=== PATIENT | male | born 1980 | race Caucasian/White ===

== ENCOUNTER 2016-05-28 19:21 | Emergency (ER) | payer OTHER ==
[~2016-05-28] VITALS: Ht 175.3 cm; Wt 134.4 kg
[2016-05-28 19:26] VITALS: TEMP 37.2; Ht 175.3 cm; Wt 134.4 kg
[2016-05-28] MEDS ORDERED: SERT50TA PO (19:51)
[2016-05-28] MEDS ORDERED: ATOR10TA88 PO (19:51)
[2016-05-28] MEDS ORDERED: FLUT0.15 NAE (19:51)
[2016-05-28] MEDS ORDERED: PRLSR20 PO (19:51)
[2016-05-28] MEDS ORDERED: GABA-112 PO (19:51)
[2016-05-28] MEDS ORDERED: METF500T5 PO (19:51)
[2016-05-28] MEDS ORDERED: CLR10 PO (19:51)
[2016-05-28] MEDS ORDERED: SODIUM CHLORIDE 0.9% 1000ML 1,000 ML IV STA (19:59)
[2016-05-28] MEDS ORDERED: ALBUT/IPRATROP 3MG/0.5MG NEB 3 ML VIAL INH STA (19:59)
[2016-05-28 20:45] LABS: BASO % 0.3 %; BASO ABS # 0.03 K/uL (0-0.2); COMPLETE YES; EOS % 0.8 %; HEMATOCRIT 45.1 % (42-52); IG% 0.3 %; LYMPH % 16.1 %; MEAN CELL VOLUME 87.7 fL (80-100); MEAN CORPUSCULAR HEMOGLOBIN 32.1 pg (25-34); MEAN CORPUSCULAR HGB CONC 36.6 g/dl (32-36); MEAN PLATELET VOLUME 11.6 fL (7.4-10.4); NEUT % 71.5 %; PLATELET COUNT 182 K/uL (130-400); RED BLOOD COUNT 5.14 M/uL (4.7-6.1); WHITE BLOOD COUNT 9.31 K/uL (4.8-10.8)
[2016-05-28 21:04] LABS: ALT/SGPT 72 U/L (12-78); BLOOD UREA NITROGEN 15 mg/dl (7-18); BUN/CREATININE RATIO 14.6 (10-20); CALCIUM 8.8 mg/dl (8.5-10.1); CARBON DIOXIDE 24 mmol/L (21-32); CHLORIDE 104 mmol/L (98-107); GLUCOSE 186 mg/dl (70-99); POTASSIUM 3.6 mmol/L (3.5-5.1); SODIUM 140 mmol/L (136-145)
--- NOTE | 2016-05-28 21:06 | DIAGNOSTIC IMAGING REPORT ---
CHEST 2 VIEWS ROUTINE HISTORY: EVALUATE RESPIRATORY DISTRESS.DYSPNEA COMPARISON: Chest 10/30/2015. FINDINGS: The lungs are clear. Cardiac silhouette is normal in size. No pleural effusions. No pneumothorax. IMPRESSION: No acute process. Electronically signed by: Rkaan García M.D. 05/28/2016 9:04 PM Dictated Date/Time: 05/28/2016 9:02 PM
[2016-05-28 21:09] LABS: ALKALINE PHOSPHATASE 129 U/L (45-117); AST/SGOT 34 U/L (15-37)
[2016-05-28] MEDS ORDERED: VNTHFA/IN INH (21:11)
--- NOTE | 2016-05-28 21:25 | EMERGENCY ROOM VISIT NOTE ---
ED Visit Note First contact with patient: 19:51 Chief Complaint: Flulike symptoms. History of Present Illness: Mr. Navas is a 36-year-old white male who ambulates into the ED with multiple symptoms. Patient reports his symptoms started approximately 2 weeks ago and has gradually increased in intensity. These have been sinus congestion, nasal drainage, cough, sneezing, episodes of feeling very hot and then having an episode of diaphoresis, bilateral lateral chest pain more pronounced on the left than the right, wheezing and dyspnea on exertion. Patient reports he had seen his PCP for these symptoms and was placed on Claritin which minimally improved his symptoms and Flonase. He describes his chest discomfort as a sharp sensation. He places it over the bilateral lateral and anterior chest. He rates his discomfort 3/10. The pain is nonradiating. The pain worsens with coughing and sneezing. He has not identified any alleviating factors related to these pains. He has not taken any medications for pain prior to arrival at the hospital. For his other symptoms he reports he has been using DayQuil and NyQuil without relief but does report they have caused him to sleep all day. Additionally he reports he has been having increasing urinary frequency but not her and or other urinary tract symptoms symptoms. He denies lamont fevers, headache, dizziness, sinus congestion, hearing changes, ear pain, bloody drainage from his nose, sore throat, difficulty speaking, difficulty swallowing, neck and back pain, midsternal chest pain, palpitations, orthopnea, dependent edema, previous clots, claudication, cramping, recent surgery/inactivity/extended travel, hemoptysis, abdominal pain, nausea/vomiting , posttussive vomiting, decreased appetite, flank pain, urinary burning, hematuria. Review of Systems: As noted above in history of present illness. All body systems were reviewed and found to be negative as noted above. Past Medical History: Diabetes, dyslipidemia, pneumonia, bronchitis, rhabdomyolysis, noncardiogenic pulmonary edema, learning disability. Current Medications: Medications Dose Route/Sig Max Daily Dose Days Date Category Lipitor (Atorvastatin Calcium) 10 Mg Tab 10 Mg PO DAILY 05/28/16 Reported Neurontin (Gabapentin) 100 Mg Cap 100 Mg PO TID 05/28/16 Reported Zoloft (Sertraline HCl) 50 Mg Tab 50 Mg PO DAILY 05/28/16 Reported Glucophage Er (Metformin HCl) 500 Mg Tab 1,000 Mg PO BID 05/28/16 Reported Prilosec (Omeprazole) 20 Mg Capcr 20 Mg PO DAILY 05/28/16 Reported Flonase Allergy Relief (Fluticasone Propionate (Nasal)) 50 Mcg/Act Spr 2 Sprays REYNALDO DAILY 05/28/16 Reported Claritin (Loratadine) 10 Mg Tab 10 Mg PO DAILY 05/28/16 Reported Allergies to Medications: Patient denies. Social History: Patient is not employed, he is on disability; he feels safe in his home environment; he admits to tobacco and alcohol use. Physical Examination: Vital Signs: Date Time Temp Pulse Resp B/P Pulse Ox O2 Delivery O2 Flow Rate FiO2 05/28/16 20:39 112 18 139/96 96 Room Air 05/28/16 19:26 37.2 118 18 162/93 98 Room Air GENERAL: 36-year-old male in mild distress due to pain, nontoxic-appearing, afebrile and hemodynamically stable. NEUROLOGICAL: Awake, alert and oriented to person, place and time. Answering questions appropriately and following commands. Normal gait. Good hand eye coordination. No focal motor sensory deficits. SKIN: Hot, wet and pink. No soft tissue eruptions or trauma noted. HEENT: Atraumatic and normocephalic. PERRLA. Sclera white and conjunctiva pink. No drainage from naris, but audible congestion. Oral cavity moist and pink. No erythema or tenderness over the frontal or maxillary sinuses. External ears are nontender. Auditory canals are pink and patent. Bilateral cerumen impaction. Pharynx is nonerythematous or edematous. Speech normal. No lymphadenopathy. No carotid bruits. Trachea midline. No jugular venous distention. BACK: No tenderness over the bony spine. No CVA tenderness. THORAX: Lungs sounds are clear to auscultation but decreased bilaterally with equal equal bilaterally with symmetrical chest wall. No wheezing, rales or rhonchi. Moderate tenderness over the lower anterior lateral chest guzmán without bony deformity, bony crepitus or subcutaneous air. No increased respiratory effort or rate. HEART: Tachycardic rate and rhythm. No gallops, rubs or murmurs are appreciated. PMI is not displaced. No lifts, he is or thrills. ABDOMEN: Obese, soft and nontender. Positive bowel sounds in all quadrants. No guarding, rigidity or organomegaly. EXTREMITIES: Moves all extremities well on command and with purpose. All distal neurovascular statuses are intact and equal bilaterally. No calf tenderness or cords. ED Course: Patient is assessed as noted above. Laboratory Testing: Test 05/28/16 20:30 05/28/16 20:33 Range/Units White Blood Count 9.31 4.8-10.8 K/uL Red Blood Count 5.14 4.7-6.1 M/uL Hemoglobin 16.5 14.0-18.0 g/dL Hematocrit 45.1 42-52 % Mean Corpuscular Volume 87.7 80-100 fL Mean Corpuscular Hemoglobin 32.1 25-34 pg Mean Corpuscular Hemoglobin Concent 36.6 32-36 g/dl Platelet Count 182 130-400 K/uL Mean Platelet Volume 11.6 7.4-10.4 fL Neutrophils (%) (Auto) 71.5 % Lymphocytes (%) (Auto) 16.1 % Monocytes (%) (Auto) 11.0 % Eosinophils (%) (Auto) 0.8 % Basophils (%) (Auto) 0.3 % Neutrophils # (Auto) 6.66 1.4-6.5 K/uL Lymphocytes # (Auto) 1.50 1.2-3.4 K/uL Monocytes # (Auto) 1.02 0.11-0.59 K/uL Eosinophils # (Auto) 0.07 0-0.5 K/uL Basophils # (Auto) 0.03 0-0.2 K/uL RDW Standard Deviation 40.3 36.4-46.3 fL RDW Coefficient of Variation 12.6 11.5-14.5 % Immature Granulocyte % (Auto) 0.3 % Immature Granulocyte # (Auto) 0.03 0.00-0.02 K/uL Sodium Level 140 136-145 mmol/L Potassium Level 3.6 3.5-5.1 mmol/L Chloride Level 104 98-107 mmol/L Carbon Dioxide Level 24 21-32 mmol/L Anion Gap 12.0 3-11 mmol/L Blood Urea Nitrogen 15 7-18 mg/dl Creatinine 1.00 0.60-1.40 mg/dl Est Creatinine Clear Calc Drug Dose 141.6 ml/min Estimated GFR () 113.3 Estimated GFR (Non- 97.8 BUN/Creatinine Ratio 14.6 10-20 Random Glucose 186 70-99 mg/dl Calcium Level 8.8 8.5-10.1 mg/dl Total Bilirubin 0.4 0.2-1 mg/dl Aspartate Amino Transf (AST/SGOT) 34 15-37 U/L Alanine Aminotransferase (ALT/SGPT) 72 12-78 U/L Alkaline Phosphatase 129 45-117 U/L Total Creatine Kinase 217 39-308 U/L Creatine Kinase MB < 0.5 0.5-3.6 ng/ml Creatine Kinase MB Ratio 0-3.0 Troponin I < 0.015 0-0.045 ng/ml Total Protein 7.3 6.4-8.2 gm/dl Albumin 3.6 3.4-5.0 gm/dl Globulin 3.7 2.5-4.0 gm/dl Albumin/Globulin Ratio 1.0 0.9-2 Bedside Glucose 197 70-99 mg/dl EKG: Was read by myself and reviewed with Dr. Ivory; shows sinus tachycardia with a ventricular rate of 112 bpm. Nonspecific T wave abnormalities but no significant ST changes indicating ischemia, injury or infarction. This was compared to a previous from March 2009 and T wave inversion in V5 and V6 were reversed and are now positive. Chest X-Rays: Were read by myself and the radiologist showing no acute infiltrates, effusions or pneumothorax. Stable heart silhouette and no bony abnormalities. This was compared to previous and no acute changes were noted. Patient was hydrated with normal saline and received an albuterol/Atrovent nebulizer breathing treatment. Patient was reassessed multiple times during his stay in the emergency department. After his breathing treatment his lungs are reassessed and showed improved air movement in all kim and he continued to have no wheezing, rales or rhonchi. Patient's case was reviewed with Dr. Ivory; we agreed on diagnostic approach, treatment, disposition and plan. Patient was educated about tonight's findings and instructed on his treatment plan; he verbalizes understanding and agreement with this plan. Clinical Impression: Upper respiratory tract infection. Hyperglycemia. Tinea rash in the axillary area. Decision-Making: Initially my differential diagnosis I considered bronchitis, pneumonia, pulmonary edema, acute coronary syndrome, pleurisy and other causes. Disposition: Patient discharged home in stable condition; prior to departure he was reassessed and subjectively reported he was feeling better. Plan: Continue your current medications as prescribed right primary care provider. Use ibuprofen or acetaminophen as needed for pain. Stop tobacco use until resolution of symptoms. Use 2 puffs of albuterol inhaler with spacer every 6 hours for 5 days and as needed for severe coughing episode, wheezing or sensations of shortness of breath. Cover your rash with an [id number] fungal cream 2 times a day. Recheck your blood sugar before and after every meal for the next 5 days and at bedtime and waking up. Document these on a piece of paper's to review those with your primary care provider. Follow-up with your family physician for recheck in 2-4 days and also reevaluation of your blood sugar. Return to the ED for worsening coughing, coughing up blood, worsening wheezing/ shortness of breath, fevers, worsening blood sugar or any new/concerning symptoms.
[2016-05-28 21:43] VITALS: BP 148/93; PULSE 110; O2SAT 96
== END 2016-05-28 21:44 | disposition home or self-care (01) ==
LOC: C.EDB 19:22 → C.EDD 21:44
DX: J06.9 Acute upper respiratory infection, unspecified (principal); E11.65 Type 2 diabetes mellitus with hyperglycemia; B35.9 Dermatophytosis, unspecified; E78.5 Hyperlipidemia, unspecified; F17.200 Nicotine dependence, unspecified, uncomplicated

== ENCOUNTER 2017-01-12 23:12 | Emergency (ER) | payer OTHER ==
[~2017-01-12] VITALS: Ht 182.9 cm; Wt 119.0 kg
[~2017-01-12 23:12] MED LIST: ATOR10TA88 PO; CLR10 PO; FLUT0.15 NAE; GABA-112 PO; METF500T5 PO; PRLSR20 PO; SERT50TA PO
[2017-01-12 23:21] VITALS: TEMP 36.8; Ht 182.9 cm; Wt 119.0 kg
[2017-01-12] MEDS ORDERED: KETOROLAC TROMETHAMINE 30 MG/ML VIAL IV STA (23:34)
[2017-01-12] MEDS ORDERED: SODIUM CHLORIDE 0.9% 1000ML 1,000 ML IV STA (23:34)
[2017-01-13 00:02] VITALS: O2SAT 96
[2017-01-13 00:52] LABS: ALKALINE PHOSPHATASE 171 U/L (45-117); ALT/SGPT 46 U/L (12-78); AST/SGOT 19 U/L (15-37); BLOOD UREA NITROGEN 7 mg/dl (7-18); BUN/CREATININE RATIO 7.2 (10-20); CALCIUM 8.7 mg/dl (8.5-10.1); CARBON DIOXIDE 27 mmol/L (21-32); CHLORIDE 100 mmol/L (98-107); CREATININE 0.94 mg/dl (0.60-1.40); GLUCOSE 313 mg/dl (70-99); POTASSIUM 3.1 mmol/L (3.5-5.1); SODIUM 135 mmol/L (136-145)
[2017-01-13 01:22] LABS: BETA-HYDROXYBUTYRATE 1.17 mg/dL (0.2-2.81)
[2017-01-13 01:32] LABS: BASO % 0.3 %; BASO ABS # 0.03 K/uL (0-0.2); COMPLETE YES; EOS % 1.1 %; HEMATOCRIT 46.2 % (42-52); IG% 0.6 %; LYMPH % 32.9 %; LYMPH ABS # 3.26 K/uL (1.2-3.4); MEAN CELL VOLUME 85.7 fL (80-100); MEAN CORPUSCULAR HEMOGLOBIN 30.9 pg (25-34); MEAN CORPUSCULAR HGB CONC 36.3 g/dl (32-36); MEAN PLATELET VOLUME 11.8 fL (7.4-10.4); MONO % 6.6 %; NEUT % 58.5 %; PLATELET COUNT 154 K/uL (130-400); RED BLOOD COUNT 5.39 M/uL (4.7-6.1); WHITE BLOOD COUNT 9.91 K/uL (4.8-10.8)
[2017-01-13] MEDS ORDERED: POTASSIUM CHLORIDE 10 MEQ TABCR PO STA (01:40)
[2017-01-13 01:54] VITALS: BP 141/99; PULSE 89; O2SAT 97
--- NOTE | 2017-01-13 06:39 | EMERGENCY ROOM VISIT NOTE ---
History First contact with patient: 23:26 Chief Complaint: LEG PAIN,LEG INJURY Stated Complaint: CURTIS HOARSE IN B/L CALVES, RESTLESS, BACK PAIN History of Present Illness The patient is a 36 year old male who presents to the Emergency Room with complaints of leg cramping for the past year that is slightly worse today. Patient does not regularly check his blood sugars. Patient denies chest pain, dyspnea, fever, chills, nausea, vomiting, diarrhea, abdominal pain. He is tolerate by mouth fluids and food. Review of Systems See HPI for pertinent positives & negatives. A total of 10 systems reviewed and were otherwise negative. Past Medical/Surgical History Medical Problems: (1) History of COPD (2) No Known Active Medical Problems Family History Cancer Diabetes mellitus Seizures Social History Smoking Status: Current Every Day Smoker Drug Use: none Marital Status: Occupation Status: employed Current/Historical Medications Scheduled Atorvastatin (Lipitor), 10 MG PO DAILY Gabapentin (Neurontin), 100 MG PO TID Loratadine (Claritin), 10 MG PO DAILY Metformin Hcl Er (Glucophage Er), 1,000 MG PO BID Omeprazole (Prilosec), 20 MG PO DAILY Sertraline (Zoloft), 50 MG PO DAILY Physical Exam Vital Signs Date Time Temp Pulse Resp B/P (MAP) Pulse Ox O2 Delivery O2 Flow Rate FiO2 01/13/17 01:54 89 20 141/99 97 01/13/17 00:43 97 20 157/112 96 Room Air 01/13/17 00:02 96 Room Air 01/12/17 23:21 36.8 117 18 142/96 96 Room Air Pain Rating (0-10): 0 Physical Exam VITALS: Vitals are noted on the nurse's note and reviewed by myself. Vital signs stable. GENERAL: White male, in no acute distress, nondiaphoretic, well-developed well- nourished. SKIN: The skin was without rashes, erythema, edema, or bruising. There is no tenting of the skin. Capillary reflex less than 2 seconds. HEAD: Normocephalic atraumatic. EARS: External auditory canals clear, tympanic membranes pearly pappas without erythema or effusion bilaterally. EYES: Pupils equal round and reactive to light and accommodation. Conjunctivae without injection, sclerae without icterus. Extraocular movements intact. NOSE: Patent, turbinates without inflammation or discharge. MOUTH: Mucous membranes moist. Pharynx without erythema or exudate. Uvula midline. Airway patent. Tongue does not deviate. NECK: Supple without nuchal rigidity. No lymphadenopathy. No thyromegaly. Cervical spine is nontender. No JVD. HEART: Regular rate and rhythm LUNGS: Clear to auscultation bilaterally without wheezes, rales or rhonchi. No dullness to percussion. No retractions or accessory muscle use. ABDOMEN: Positive bowel sounds x 4. Normal tympanic percussion. Soft, nontender, without masses or organomegaly. Lynn sign negative. No guarding or rebound tenderness. MUSCULOSKELETAL: No muscle atrophy, erythema, or edema noted. NEURO: Patient was alert and oriented to person place and time. Normal sensation to light and sharp touch. No focal neurological deficits. Medical Decision & Procedures Laboratory Results 01/12/17 23:56 Red Blood Count 5.39, Mean Corpuscular Volume 85.7, Mean Corpuscular Hemoglobin 30.9, Mean Corpuscular Hemoglobin Concent 36.3, Mean Platelet Volume 11.8, Neutrophils (%) (Auto) 58.5, Lymphocytes (%) (Auto) 32.9, Monocytes (%) (Auto) 6.6, Eosinophils (%) (Auto) 1.1, Basophils (%) (Auto) 0.3, Neutrophils # (Auto) 5.80, Lymphocytes # (Auto) 3.26, Monocytes # (Auto) 0.65, Eosinophils # (Auto) 0.11, Basophils # (Auto) 0.03 01/12/17 23:56 Test 01/12/17 23:56 White Blood Count 9.91 K/uL (4.8-10.8) Red Blood Count 5.39 M/uL (4.7-6.1) Hemoglobin 16.7 g/dL (14.0-18.0) Hematocrit 46.2 % (42-52) Mean Corpuscular Volume 85.7 fL (80-100) Mean Corpuscular Hemoglobin 30.9 pg (25-34) Mean Corpuscular Hemoglobin Concent 36.3 g/dl (32-36) Platelet Count 154 K/uL (130-400) Mean Platelet Volume 11.8 fL (7.4-10.4) Neutrophils (%) (Auto) 58.5 % Lymphocytes (%) (Auto) 32.9 % Monocytes (%) (Auto) 6.6 % Eosinophils (%) (Auto) 1.1 % Basophils (%) (Auto) 0.3 % Neutrophils # (Auto) 5.80 K/uL (1.4-6.5) Lymphocytes # (Auto) 3.26 K/uL (1.2-3.4) Monocytes # (Auto) 0.65 K/uL (0.11-0.59) Eosinophils # (Auto) 0.11 K/uL (0-0.5) Basophils # (Auto) 0.03 K/uL (0-0.2) RDW Standard Deviation 39.9 fL (36.4-46.3) RDW Coefficient of Variation 12.8 % (11.5-14.5) Immature Granulocyte % (Auto) 0.6 % Immature Granulocyte # (Auto) 0.06 K/uL (0.00-0.02) Red Blood Cell Morphology Unremarkable Anion Gap 8.0 mmol/L (3-11) Est Creatinine Clear Calc Drug Dose 147.5 ml/min Estimated GFR () 122.1 Estimated GFR (Non- 105.4 BUN/Creatinine Ratio 7.2 (10-20) Calcium Level 8.7 mg/dl (8.5-10.1) Magnesium Level 2.0 mg/dl (1.8-2.4) Total Bilirubin 0.5 mg/dl (0.2-1) Direct Bilirubin mg/dl (0-0.2) Aspartate Amino Transf (AST/SGOT) 19 U/L (15-37) Alanine Aminotransferase (ALT/SGPT) 46 U/L (12-78) Alkaline Phosphatase 171 U/L (45-117) Total Creatine Kinase 89 U/L (39-308) Total Protein 7.0 gm/dl (6.4-8.2) Albumin 3.5 gm/dl (3.4-5.0) Beta-Hydroxybutyric Acid 1.17 mg/dL (0.2-2.81) Chemistry Specimen Hemolysis Medications Administered Medications (Trade) Dose Ordered Sig/Kevon Route Start Time Stop Time Status Last Admin Dose Admin Sodium Chloride 1,000 ml @ 999 mls/hr Q1H1M STAT IV 01/12/17 23:34 01/13/17 00:34 DC 01/13/17 00:03 999 MLS/HR Ketorolac Tromethamine (Toradol Inj) 30 mg NOW STAT IV 01/12/17 23:34 01/12/17 23:36 DC 01/13/17 00:03 30 MG Potassium Chloride (Klor-Con M10) 40 meq NOW STAT PO 01/13/17 01:40 01/13/17 01:41 DC 01/13/17 01:50 40 MEQ ED Course Prior records/ancillary studies reviewed and summarized above. Nursing notes reviewed. The patient's history was concerning for muscle cramps. Differential diagnosis: Etiologies such as metabolic, infection, hypo/hyperglycemia, electrolyte abnormalities, toxicologic, neurologic, as well as others were entertained. Physical examination: As above. ER treatment provided: IV Lock IV fluids, potassium On reassessment the patient felt better. Diagnostics interpretation by me: The labs revealed hypokalemia, hyperglycemia without DKA Imaging studies: Ultrasound negative for DVT Exam and history seem consistent with muscle cramps and low potassium with hyperglycemia. Patient was neurovascularly and neurologically intact. His well -appearing. No signs of DVT. He is advised to monitor his blood sugars and to follow-up family care in a few days or here in the ER sooner for chest pain, difficulty breathing, weakness, worsening signs or symptoms or as needed.By the evaluation outlined above emergent etiologies such as infection, electrolyte abnormalities, cardiac sources, intracerebral event, toxologic, neurologic, abnormalities blood glucose, metabolic, as well as others were deemed relatively unlikely. The pt informed about the findings as listed above. All questions were answered and pleased with the treatment. Return instructions were outlined and the patient was discharged in stable condition. Referral: The patient was referred back to primary care physician for follow-up in 2 to 3 days for a recheck of the current condition. Case reviewed with my attending Medical Decision As above Medication Reconcilliation Current Medication List: was personally reviewed by me Blood Pressure Screening Patient's blood pressure: Elevated blood pressure Blood pressure disposition: Referred to PCP Impression Primary Impression: Muscle cramps Additional Impressions: Hyperglycemia Hypokalemia Departure Information Dispostion Home / Self-Care Condition FAIR Forms HOME CARE DOCUMENTATION FORM, IMPORTANT VISIT INFORMATION Patient Instructions Hyperglycemia, My [facility], ED Spasm Muscle Additional Instructions Monitor your blood sugar. It was high today. Monitor your blood pressure. It was high today. Ibuprofen(Motrin, Advil) may be used for fever or pain. Use 600mg every six hours as needed. Take with food. Avoid using more than 2400mg in a 24 hour period. Do not use 2400mg per day for more than three consecutive days without physician direction. Prolonged inappropriate use can lead to stomach upset or ulcers. (AND/OR) Acetaminophen(Tylenol) may be used for fever or pain. Use 1000mg every six hours as needed. Avoid using more than 3000mg in a 24 hour period. Rest and drink plenty of fluids as tolerated. Continue current medications. Avoid strenuous activities and anything that worsens your pain. Resume normal activities once your symptoms resolve. Return to the ER immediately for worsening or persistent leg cramps, abdominal pain, vomiting, fevers, chest pains, difficulty breathing, worsening of your condition, or as needed. Follow up with your primary physician in 2-3 days for a recheck of your current condition. Problem Qualifiers
--- NOTE | 2017-01-13 07:08 | DIAGNOSTIC IMAGING REPORT ---
BILATERAL LOWER EXTREMITY VENOUS DOPPLER HISTORY: Acute bilateral lower extremity cramping COMPARISON STUDY: None. FINDINGS: There is normal compressibility, flow, and augmentation within the bilateral lower extremity deep venous systems. IMPRESSION: No sonographic evidence of deep venous thrombosis within the right or left lower extremity. Electronically signed by: Gigi Greco M.D. 01/13/2017 7:07 AM Dictated Date/Time: 01/13/2017 7:06 AM
== END 2017-01-13 01:54 | disposition home or self-care (01) ==
LOC: C.EDB 23:14
DX: R25.2 Cramp and spasm (principal); R73.9 Hyperglycemia, unspecified; E87.6 Hypokalemia; J44.9 Chronic obstructive pulmonary disease, unspecified; F17.200 Nicotine dependence, unspecified, uncomplicated; Z79.84 Long term (current) use of oral hypoglycemic drugs; Z79.899 Other long term (current) drug therapy; Z80.9 Family history of malignant neoplasm, unspecified; Z83.3 Family history of diabetes mellitus; Z82.0 Family history of epilepsy and other diseases of the nervous system

== ENCOUNTER 2017-06-09 15:39 | Emergency (ER) | payer OTHER ==
[~2017-06-09] VITALS: Ht 175.3 cm; Wt 122.0 kg
[~2017-06-09 15:39] MED LIST changes: +ATOR10TA82 PO; -ATOR10TA88 PO; -FLUT0.15 NAE
[2017-06-09 15:41] VITALS: TEMP 36.8; Ht 175.3 cm; Wt 122.0 kg
--- NOTE | 2017-06-09 16:36 | DIAGNOSTIC IMAGING REPORT ---
SINUSES-MAXILLOFACIAL W/O HISTORY: 37 years-old Male ? Chronic sinusitis COMPARISON: CT head 06/17/2012 TECHNIQUE: Multiple axial CT images of the maxillofacial bones were obtained without contrast. A dose lowering technique was used consistent with the principals of BRANDY. FINDINGS: Mastoid air cells and middle ear cavities are clear. The maxillary, sphenoid, and frontal sinuses are clear. There is minimal mucosal thickening of the ethmoid air cells. Mild mucosal thickening of the nasal turbinates. Mild leftward bowing and spurring of the nasal septum. Small bilateral fabiola bullosa. No sinonasal polyps identified. Nasopharynx appears patent. The frontoethmoidal, and sphenoethmoidal recesses are patent. The bilateral maxillary ostiomeatal units are also patent with mild mucosal thickening seen on the right. There are small bilateral Kusum cells. Dai ganesh appears normal. No acute facial bone fracture or subluxation. The imaged soft tissues are unremarkable. Orbits appear intact. The imaged intracranial structures demonstrate no acute abnormality. IMPRESSION: 1. Minimal mucosal thickening of the ethmoid air cells and nasal turbinates with the remaining paranasal sinuses clear. 2. Small bilateral Kusum cells with mild mucosal thickening of the right maxillary ostiomeatal unit. 3. Mild leftward bowing and spurring of the nasal septum. The above report was generated using voice recognition software. It may contain grammatical, syntax or spelling errors. Electronically signed by: Gigi Greco M.D. 06/09/2017 4:34 PM Dictated Date/Time: 06/09/2017 4:29 PM
--- NOTE | 2017-06-09 16:38 | DIAGNOSTIC IMAGING REPORT ---
CHEST 2 VIEWS ROUTINE HISTORY: 37 years-old Male productive cough acute productive cough COMPARISON: Chest radiographs 05/28/2016 TECHNIQUE: PA and lateral views of the chest FINDINGS: Cardiac mediastinal and hilar silhouettes are within normal limits. No pneumothorax, pleural effusion, focal airspace consolidation or overt pulmonary edema. Hazy ill-defined opacities of the lung bases on the frontal view is likely secondary to composite soft tissue. The bones of the chest appear grossly intact. IMPRESSION: No acute process. The above report was generated using voice recognition software. It may contain grammatical, syntax or spelling errors. Electronically signed by: Gigi Greco M.D. 06/09/2017 4:36 PM Dictated Date/Time: 06/09/2017 4:35 PM
[2017-06-09 17:30] VITALS: BP 141/98; PULSE 84; O2SAT 95
--- NOTE | 2017-06-09 17:32 | EMERGENCY ROOM VISIT NOTE ---
ED Visit Note First contact with patient: 15:44 I have personally evaluated this patient examined her and reviewed the pertinent labs and data. I have discussed the case with Ariana Browning, the physician surgical dental assistant and agree with the plan. Please refer to the PA note. This patient has had some sinus congestion and a cough for about a month. He has a postnasal drip. He looks well on exam and is not hypoxemic. He is in no distress. Chest x-ray was unremarkable. He does have some mild sinus disease. We will put him on antibiotics and steroids and he can continue to use antihistamines. Return if: any new problems or concerns follows doctor for recheck.
[2017-06-09] MEDS ORDERED: AZITTAB PO (17:38)
[2017-06-09] MEDS ORDERED: PRED50TA PO (17:38)
[2017-06-09] MEDS ORDERED: VNTHFA/IN INH (17:38)
--- NOTE | 2017-06-09 17:39 | EMERGENCY ROOM VISIT NOTE ---
History First contact with patient: 15:44 Chief Complaint: COUGH Stated Complaint: FEELS LIKE THROATS CLOSING, COUGH Nursing Triage Summary: Pt c/o non productive cough, chest congestion and frontal h/a's x 1 week. Pt denies fever, chills, n/v. History of Present Illness The patient is a 37 year old male who presents to the Emergency Room with complaints of a productive cough, sore throat and nasal drainage has been going on for the last few weeks. He denies any shortness of breath. No fever. He has also had headaches and sinus pressure. He still has primary care physician. He was prescribed nasal spray, which he says he cannot use because it causes his nose to bleed. The patient denies any history of pulmonary disease. He did not get a flu vaccine this year. Review of Systems 10 system review performed and negative unless noted in HPI or below Past Medical/Surgical History Medical Problems: (1) History of COPD (2) No Known Active Medical Problems Diabetes Family History Cancer Diabetes mellitus Seizures Social History Smoking Status: Heavy Tobacco Smoker Drug Use: none Marital Status: Occupation Status: employed Current/Historical Medications Scheduled Albuterol Hfa (Ventolin Hfa), 2 PUFFS INH QID Atorvastatin (Lipitor), 10 MG PO DAILY Azithromycin (Zithromax Z-Reji), 0 PO UD Gabapentin (Neurontin), 100 MG PO TID Loratadine (Claritin), 10 MG PO DAILY Metformin Hcl Er (Glucophage Er), 1,000 MG PO BID Omeprazole (Prilosec), 20 MG PO DAILY Prednisone (Prednisone), 50 MG PO DAILY Sertraline (Zoloft), 50 MG PO DAILY Physical Exam Vital Signs Date Time Temp Pulse Resp B/P (MAP) Pulse Ox O2 Delivery O2 Flow Rate FiO2 06/09/17 17:30 84 18 141/98 95 Room Air 06/09/17 16:53 Room Air 06/09/17 15:41 36.8 105 20 148/103 97 Room Air Physical Exam VITALS: Vitals are noted on the nurse's note and reviewed by myself. Vital signs stable. GENERAL: 37-year-old male, in no acute distress, nondiaphoretic, well-developed well-nourished. SKIN: The skin was without rashes, erythema, edema, or bruising. HEAD: Normocephalic atraumatic. EYES: Conjunctivae without injection, sclerae without icterus. Extraocular movements intact. NOSE: No sinus tenderness. MOUTH: Mucous membranes moist. Tonsils are not enlarged. Mild erythema of the tonsils and oropharynx. Uvula midline. Airway patent. Tongue does not deviate. NECK: Supple without nuchal rigidity. No lymphadenopathy. Cervical spine is nontender. No JVD. HEART: Regular rate and rhythm without murmurs gallops or rubs. LUNGS: Clear to auscultation bilaterally without wheezes, rales or rhonchi. No accessory muscle use. MUSCULOSKELETAL: No muscle atrophy, erythema, or edema noted. Strength 5/5 throughout. NEURO: Patient was alert and oriented to person place and time. Normal sensation to touch. No focal neurological deficits. Medical Decision & Procedures ER Provider Diagnostic Interpretation: Chest x-ray Patient Name: ANDRE MONDRAGON Unit Number: [id number] Dictated: 06/09/171634 Transcribed: 06/09/171634 JRB Printed Date/Time: [~ rep prt dt]/[~ rep prt tm] [~ rep ct labl] - [~ rep ct ivnm] [facility] Radiology Department [place] [id number] Dictated: 06/09/171634 Transcribed: 06/09/171634 JRB Printed Date/Time: [~ rep prt dt]/[~ rep prt tm] [~ rep ct labl] - [~ rep ct ivnm] IMPRESSION: No acute process. The above report was generated using voice recognition software. It may contain grammatical, syntax or spelling errors. Electronically signed by: Gigi Greco M.D. 06/09/2017 4:36 PM Dictated Date/Time: 06/09/2017 4:35 PM The status of this report is Signed. Draft = Not yet reviewed or approved by Radiologist. Signed = Reviewed and approved by Radiologist. <AttendingPhy></AttendingPhy> <FamilyPhy>Mala Back D.O.</FamilyPhy> < PrimaryPhy>Mala Back D.O.</PrimaryPhy> <UnitNumber>[id number]</UnitNumber> <VisitNumber>[id number]</VisitNumber> <PatientName>ANDRE MONDRAGON</PatientName > <DateOfBirth>1980</DateOfBirth> <Location>[facility]</Location> <ServiceDate> 06/09/17</ServiceDate> <MNE>ESINDI</MNE> <OrderingPhy>NamAriana Guillermo BAUTISTA</ OrderingPhy> <OrderingPhyMNE>f rep ord dr smith</OrderingPhyMNE> <DictatingPhyMNE> f rep dict dr smith</DictatingPhyMNE> <CCListMNE>f rep ct luis</CCListMNE> < AdmittingPhyMNE>f pt admit dr smith</AdmittingPhyMNE> <AttendingPhyMNE>f pt attend dr smith</AttendingPhyMNE> <ConsultingPhyMNE>f pt consult dr smith</ConsultingPhyMNE> <FamilyPhyMNE>f pt fam dr smith</FamilyPhyMNE> <OtherPhyMNE>f pt other dr smith</OtherPhyMNE> < PrimaryPhyMNE>f pt prim care dr smith</PrimaryPhyMNE> <ReferringPhyMNE>f pt referring dr smith</ReferringPhyMNE> CT sinuses 1. Minimal mucosal thickening of the ethmoid air cells and nasal turbinates with the remaining paranasal sinuses clear. 2. Small bilateral Kusum cells with mild mucosal thickening of the right maxillary ostiomeatal unit. 3. Mild leftward bowing and spurring of the nasal septum. The above report was generated using voice recognition software. It may contain grammatical, syntax or spelling errors. Electronically signed by: Gigi Greco M.D. 06/09/2017 4:34 PM Dictated Date/Time: 06/09/2017 4:29 PM The status of this report is Signed. Draft = Not yet reviewed or approved by Radiologist. Signed = Reviewed and approved by Radiologist. <AttendingPhy></AttendingPhy> <FamilyPhy>Mala Back D.O.</FamilyPhy> < PrimaryPhy>Mala Back D.O.</PrimaryPhy> <UnitNumber>[id number]</UnitNumber> <VisitNumber>[id number]</VisitNumber> <PatientName>ANDRE MONDRAGON</PatientName > <DateOfBirth>1980</DateOfBirth> <Location>[facility]</Location> <ServiceDate> 06/09/17</ServiceDate> <MNE>ESINDI</MNE> <OrderingPhy>NamAriana Guillermo BAUTISTA</ OrderingPhy> <OrderingPhyMNE>f rep ord dr smith</OrderingPhyMNE> <DictatingPhyMNE> f rep dict dr smith</DictatingPhyMNE> <CCListMNE>f rep ct mne</CCListMNE> < AdmittingPhyMNE>f pt admit dr smith</AdmittingPhyMNE> <AttendingPhyMNE>f pt attend dr smith</AttendingPhyMNE> Medications Administered Medications (Trade) Dose Ordered Sig/Kevon Route Start Time Stop Time Status Last Admin Dose Admin Prednisone (PredniSONE TAB) 60 mg NOW STAT PO 06/09/17 17:39 06/09/17 17:40 DC 06/09/17 18:05 60 MG ED Course The patient was seen and examined by myself and my supervising physician Imaging was performed and reviewed The patient was given prednisone 50 mg by mouth We reviewed the findings. The patient voiced understanding. Discharge instructions were reviewed, and he was discharged in good condition Medical Decision Differential diagnosis: Bronchitis, pneumonia, strep pharyngitis, viral pharyngitis, influenza , chronic sinusitis, acute sinusitis, chronic bronchitis This patient is a 37-year-old male presents to emergency department with a chronic cough, headaches and sinus congestion. On exam, he is nontoxic in appearance. He is afebrile. Vital signs are stable. His lungs were clear. His chest x-ray is negative for pneumonia. I do not suspect influenza. A CT of the sinuses revealed minor disease. I believe he likely has a chronic bronchitis. The patient will be treated with steroids and a Z-Reji. He was also given an inhaler. He was urged to follow-up with his primary care physician, and agrees to return here with any worsening symptoms This chart was completed in part utilizing [employer] Voice Recognition software. Attempts were made to minimize the grammatical errors, random word insertions, pronoun errors and incomplete sentences. Any formal questions or concerns about the content, text or information contained within the body of this dictation should be directly addressed to the provider for clarification. Medication Reconcilliation Current Medication List: was personally reviewed by me Blood Pressure Screening Patient's blood pressure: Elevated blood pressure Blood pressure disposition: Did not require urgent referral Impression Primary Impression: Chronic bronchitis Departure Information Dispostion Home / Self-Care Condition GOOD Prescriptions Albuterol Hfa (VENTOLIN HFA) 200 Puffs/48597 Mcg Aers 2 PUFFS INH QID for SOB/Wheezing, #1 INHALER Prov: Ariaan Browning PA-C 06/09/17 Prednisone (Prednisone) 50 Mg Tab 50 MG PO DAILY for 4 Days, #4 TAB Prov: Ariana Browning PA-C 06/09/17 Azithromycin (ZITHROMAX Z-REJI) 250 Mg Tab 0 PO UD, #1 PKT 2 TABS DAY 1, THEN 1 TAB DAILY FOR 4 DAYS Prov: Ariana Browning PA-C 06/09/17 Referrals Mala Back D.O. (PCP) Patient Instructions Bronchitis Chronic, My [facility] Additional Instructions You were evaluated in the emergency department for a cough, sinus congestion and headaches. This is likely due to chronic bronchitis. Please take the entire course of steroids. It is very important to monitor your blood sugar while on this medication Please take the entire course of antibiotics. Albuterol inhaler 2 puffs every 6 hours as needed for cough, shortness of breath or wheezing Follow-up with your primary care physician within the next week for recheck Please do not hesitate to return to the emergency department with any new, worsening or concerning symptoms
== END 2017-06-09 18:11 | disposition home or self-care (01) ==
LOC: C.EDB 15:41 → C.EDC 18:11
DX: J42 Unspecified chronic bronchitis (principal); J44.9 Chronic obstructive pulmonary disease, unspecified; R05 Cough; F17.210 Nicotine dependence, cigarettes, uncomplicated; Z79.899 Other long term (current) drug therapy